=== PATIENT | male | born 1990 | race Caucasian/White ===

== ENCOUNTER 2016-08-23 19:47 | Emergency (ER) | payer OTHER ==
[2016-08-23 19:57] VITALS: BP 144/88
[2016-08-23] MEDS ORDERED: KETOROLAC TROMETHAMINE 30 MG/ML VIAL IM ONE (20:06)
[2016-08-23] MEDS ORDERED: DIPHTH,PERTUSS(ACELL),TET VAC 0.5 ML VIAL IM ONE ×2 (20:06→20:43)
[2016-08-23] MEDS ORDERED: oxyCODONE HCL/ACETAMINOPHEN 1 TAB TABLET PO ONE (20:06)
--- OUTSIDE RECORDS SUMMARY | 2016-08-23 20:15 | XMS REPORT | Continuity of Care Document ---
:1990 Author Organization [facility] ([facility]) Address [address] [place] [address] Phone [phone] Care Team Providers Name Role Phone Unavailable Primary Care Provider Unavailable Source Comments This disclosure is being made pursuant to the Care Everywhere program, applicable federal and state laws, and may not contain all informaitonavailable regarding this patient.[facility] ([facility]) Active Allergies and Adverse Reactions Not on File Current Medications Not on file Active Problems Not on file Social History Tobacco Use Types Packs/Day Years Used Date Never Assessed Plan of Care Health Maintenance Due Date Last Done Comments Hepatitis B Vaccine (1 of 3 - Primary Series) 1990 HPV Vaccine (1 of 3 - Male 3 Dose Series) 10/05/2002 Tdap Vaccine 10/05/2002 Lipid Disorder Screening 10/05/2009 MMR Vaccine 10/05/2009 Td Vaccine 10/05/2009 Varicella Vaccine (1 of 2 - Adult - No Evidence of 10/05/2009 Immunity) Influenza Vaccine: Seasonal (#1) 01/29/2016 Results from Last 3 Months Not on file
--- NOTE | 2016-08-23 20:17 | ERNOTE ---
Upper Extremity HPI - Narrative Date of Service: 08/23/16 - General Extremities Pain Location: 2nd finger: right - Pain, swelling, wounds, 3rd finger: right - Pain, swelling, wounds Time Seen by Provider: 08/23/16 20:01 Source: patient Exam Limitations: no limitations - Immun/Allergies/Home Medications Immunizations: IMMUNIZATION HX Immunizations Up to Date Yes History of Influenza Vaccine Yes Allergies/Adverse Reactions: Allergies Allergy/AdvReac Type Severity Reaction Status Date / Time No Known Allergies Allergy Verified 08/23/16 19:57 Home Medications: HOME MEDICATIONS Dextroamphetamine/Amphetamine [Adderall 30 mg Tablet] 30 mg PO DAILY 06/22/16 [ Last Taken 06/22/16 08:00] Cephalexin Monohydrate [Keflex] 1,000 mg PO BID #40 cap 08/23/16 [Last Taken Unknown] Mupirocin Calcium [Bactroban] 30 gm TP BID #1 cream..g. 08/23/16 [Last Taken Unknown] Sulfamethoxazole/Trimethoprim [Bactrim Ds] 1 tab PO BID #28 tab 08/23/16 [Last Taken Unknown] oxyCODONE HCL/ACETAMINOPHEN [Percocet 5 MG/325 MG] 1 tab PO Q6H #20 tablet 08/23 [Last Taken Unknown] - History of Present Illness Narrative: Patient was a home grinding and the machine broke and hit his R hand 2nd and 3rd fingers at noon today. Patient was seen by a family member who was reported to be a RN and treatment was given. Patient was send for evaluation as "blood poisoning" was developing. Occurred: other - Today at 12 o'clock Location of Incident: home Method of Injury: Reports: direct blow - by a grinding machine Reason for Fall: Reports: other - no fall reported Loss of Consciousness: Reports: no loss of consciousness Modifying Factors - (Improves): Reports: rest Modifying Factors - (Worsens): Reports: movement Associated Symptoms: Reports: tingling, loss of feeling Other Injuries: Reports: none Prior Treament: Denies: recently seen Review of Systems - Review of Systems Constitutional: Present: no symptoms reported EYE: Present: no symptoms reported ENT: Present: no symptoms reported Respiratory: Present: no symptoms reported Cardiology: Present: no symptoms reported Gastrointestinal/Abdominal: Present: no symptoms reported Genitourinary: Present: no symptoms reported Musculoskeletal: Present: muscle pain - there is pain on 2nd and 3rd R hand phalange, joint pain, joint swelling Skin: Present: other - Patient has some lacerations that are not bleeding Neurological: Present: tingling Endocrine: Present: no symptoms reported Hematologic/Lymphatic: Present: no symptoms reported Psych: Present: no symptoms reported All Other Systems: All systems neg except as marked - Patient's Past Medical History Patient History - Medical: ADHD Patient History - Cardiac/Respiratory: No pertinent hx Patient History - Cancer: No Hx of Cancer Patient History - Surgical Procedures: No surgical history Patient History - Other: None - Social History Living Situations: home Psych History: No pertinent hx Smoking Status: Never smoker Do you dip or chew tobacco: No Alcohol Use: none Drug Use: none - Immunizations Immunizations Up to Date: Yes History of Influenza Vaccine: Yes Physical Exam - Physical Exam General Appearance: Present: wd/wn, alert, no apparent distress, other - GCS: 15 /15 Ears, Nose, Throat: Present: normal ENT inspection, hearing grossly normal, normal pharynx Neck: Present: normal inspection, nontender Respiratory: Present: no respiratory distress, normal breath sounds, no accessory muscle use, chest nontender, lungs clear Cardiovascular/Chest: Present: regular rate, rhythm, no murmur, normal peripheral pulses Gastrointestinal/Abdominal: Present: normal bowel sounds, nontender, nondistended, soft, no organomegaly Back Exam: Present: normal inspection, normal range of motion, no CVA tenderness , no vertebral tenderness Extremity Exam: Present: other - Patient has swelling, tenderness, open wounds at the radial side of phalanges 2nd and 3rd of the R hand. Patient with limited ROM due to pain. Capillary refill is preserved and sensation is preserved. Patient is R handed Neurological Exam: Present: alert, oriented, normal mood/affect, no motor/ sensory deficits Skin Exam: Present: normal color, warm/dry Lymphatic Exam: Present: no adenopathy ED Progress - Date and Time Seen: Date and Time: 08/23/16 20:59 Patient at the moment with good capillary refill and sensation. Patient has a Fx on the proximal phalange of the 2nd finger. Patient will be given antibiotics and is to follow up with Ortho and PCP. - Vital Signs Patient's Vital Signs:: I have reviewed the patient's vital signs. Vital Signs: Vital Signs 08/23/16 19:52 Temperature 36.4 C L Pulse Rate 99 Respiratory 18 Rate Blood Pressure 144/88 O2 Sat by Pulse 100 Oximetry - X-Ray X-Ray #1 X-Ray: hand - R Hand 2nd proximal phalange non displaced Fx seen Interpretation: Interp. by me - Progress/Reassessment Chief Complaint: Hand Injury/Pain Progress:: Unchanged - Transfer of Care Expected Disposition: Discharge Departure Clinical Impression: Laceration, Finger fracture, right Contusion Qualifiers: Encounter type: initial encounter Contusion area: finger Finger: unspecified finger Damage to nail status: with damage Qualified Code(s): S60.10XA - Contusion of unspecified finger with damage to nail, initial encounter Hand injury Qualifiers: Encounter type: initial encounter Laterality: right Qualified Code(s): S69.91XA - Unspecified injury of right wrist, hand and finger(s), initial encounter Finger fracture Qualifiers: Encounter type: initial encounter Finger: unspecified finger Fracture type: open Phalanx: proximal Fracture alignment: nondisplaced Qualified Code(s): S62.649B - Nondisplaced fracture of proximal phalanx of unspecified finger, initial encounter for open fracture - Departure Disposition: Home self-care Condition: Stable Instructions: Contusion, [id number], Hand Washing, [id number], Laceration Care, Adult, [id number], Finger Fracture, [id number] Additional Instructions: Please follow up with your Primary Care Provider and Orthopedic Surgeon Referrals: Alvarado Patterson MD [Staff Physician] - Prescriptions: Cephalexin Monohydrate [Keflex] 1,000 mg PO BID #40 cap Mupirocin Calcium [Bactroban] 30 gm TP BID #1 cream..g. Sulfamethoxazole/Trimethoprim [Bactrim Ds] 1 tab PO BID #28 tab oxyCODONE HCL/ACETAMINOPHEN [Percocet 5 MG/325 MG] 1 tab PO Q6H #20 tablet
[2016-08-23] MEDS ORDERED: KETOROLAC TROMETHAMINE 30 MG/ML VIAL ONE (20:42)
[2016-08-23] MEDS ORDERED: oxyCODONE HCL/ACETAMINOPHEN 1 TAB TABLET ONE (20:42)
== END 2016-08-23 21:53 | disposition home or self-care (01) ==
LOC: ER 19:47
DX: S61.219A Laceration without foreign body of unspecified finger without damage to nail, initial encounter (principal); X58.XXXA Exposure to other specified factors, initial encounter; Y93.H3 Activity, building and construction; Y92.009 Unspecified place in unspecified non-institutional (private) residence as the place of occurrence of the external cause; Z23 Encounter for immunization